=== PATIENT | male | born 1985 | race Caucasian/White ===

== ENCOUNTER 2016-12-26 19:01 | Emergency (ER) | payer MEDICAID ==
[2016-12-26 19:09] VITALS: BP 144/89
--- NOTE | 2016-12-26 19:21 | UC ---
Throat Pain/Nasal Lee HPI - HPI Summary HPI Summary: 31 male presents with complaints of coughing and sore throat that began a week ago, went away and just recently came back yesterday. Patient was unable to sleep due to the coughing. He denies fever/chills, nausea and vomiting. Denies headache, nasal congestion and sinus pressure. States the cough is dry and he thinks the sore throat is from coughing so much. Also complains of sore ribs from coughing. He has been taking robitussin with little relief. Has not tried anything else. Has been fatigued and sleeping a lot. Denies difficulty breathing , SOB and chest pain. No known sick contacts. Has not had flu shot this year. Admits to seasonal allergies, no other PMHx. - History of Current Complaint Chief Complaint: UCRespiratory Stated Complaint: SORE THROAT/COUGH Time Seen by Provider: 12/26/16 19:14 Hx Obtained From: Patient, Family/Front Desk Manager - father Onset/Duration: Sudden Onset, Lasting Weeks, Worse Since Severity: Mild Pain Intensity: 10 Pain Scale Used: 0-10 Numeric Cough: Nonproductive Associated Signs & Symptoms: Positive: Dysphagia - Allergies/Home Medications Allergies/Adverse Reactions: Allergies Allergy/AdvReac Type Severity Reaction Status Date / Time No Known Allergies Allergy Verified 12/26/16 19:09 Home Medications: Home Medications Acetaminophen TAB* [Tylenol TAB*] 650 mg PO Q4H PRN 12/26/16 [History Confirmed 12/26/16] [email or web address] LIQ* [Robitussin*] 10 ml PO Q4H PRN 12/26/16 [History Confirmed ] PMH/Surg Hx/FS Hx/Imm Hx Cardiovascular History Of: Denies: Hypertension Respiratory History Of: Denies: Asthma Psychological History Of: Denies: Anxiety - Surgical History Surgical History: Yes Surgery Procedure, Year, and Place: amputation right pointer finger - Family History Known Family History: Positive: None - Social History Alcohol Use: None Substance Use Type: None Smoking Status (MU): Never Smoked Tobacco - Immunization History Most Recent Influenza Vaccination: did not have Vaccination Up to Date: Yes Review of Systems Constitutional: Negative Skin: Negative Eyes: Negative ENT: Sore Throat Respiratory: Cough Cardiovascular: Negative Gastrointestinal: Negative Genitourinary: Negative Motor: Negative Musculoskeletal: Negative Neurological: Negative Psychological: Negative All Other Systems Reviewed And Are Negative: Yes Physical Exam Triage Information Reviewed: Yes Appearance: Well-Appearing, No Pain Distress, Ill-Appearing Vital Signs: Initial Vital Signs Temp 98.6 F 12/26/16 19:06 Pulse 90 12/26/16 19:06 Resp 16 12/26/16 19:06 BP 144/89 12/26/16 19:06 Pulse Ox 98 12/26/16 19:06 Vital Signs Reviewed: Yes Eyes: Positive: Conjunctiva Clear ENT: Positive: Normal ENT inspection, Hearing grossly normal, Pharyngeal erythema, TMs normal. Negative: Tonsillar swelling, Tonsillar exudate, Trismus , Muffled/hoarse voice Dental: Negative: Cervical Lymphadenopathy Neck: Positive: Supple, Nontender, No Lymphadenopathy Respiratory: Positive: Chest non-tender, Lungs clear, Normal breath sounds, No respiratory distress, No accessory muscle use. Negative: Decreased breath sounds, Rhonchi, Stridor, Wheezing Cardiovascular: Positive: RRR, No Murmur, Pulses Normal, Brisk Capillary Refill Abdomen Description: Positive: Nontender Bowel Sounds: Positive: Present Musculoskeletal Exam: Normal Neurological Exam: Normal Psychological Exam: Normal Skin Exam: Normal Re-Evaluation - Re-Evaluation First Eval Re-Evaluation Time: 19:55 Change: Improved - felt better after duoneb, lung sounds clear bilaterally Throat Pain/Nasal Course/Dx - Course Course Of Treatment: patient did not appear to have strep or flu. appears to be suffering from bronchitis, given duoneb while in office. will be sent home with symptomatic measures. tessalon pearls for coughing and mucinex for congestion. chloraseptic spray for sore throat. aware of worsening signs and symptoms. antitbiotics do not seem appropriate at this time due to PE findings, HPI and vital signs. will start with symptomatic treatment. - Differential Dx/Diagnosis Differential Diagnosis/HQI/PQRI: Influenza, Mononucleosis, Otitis Media, Pharyngitis, Sinusitis, Tonsillitis, URI, Other Provider Diagnoses: Acute bronchitis, pharyngitis Discharge - Discharge Plan Condition: Stable Disposition: HOME Patient Education Materials: Acute Bronchitis (ED) Additional Instructions: Take prescribed cough suppressant before bedtime to help with sleeping. You may also use during the day if needed. Recommend Mucinex over the counter to help break up chest congestion. Try using Chloraseptic spray over the counter to help with sore throat. Ibuprofen/tylenol as needed. If symptoms worsen such as fever, increased coughing, difficulty breathing or new symptoms develop please seek medical attention. Follow up with PCP. Recommend to follow up with PCP for elevated BP.
[2016-12-26] MEDS ORDERED: Albuterol/Ipratropium NEB.SOL* Albuterol 2.5 MG/Ipratropium 0.5 MG 3 ML INH ONE (19:33)
[2016-12-26] MEDS ORDERED: Benzonatate CAP* 100 MG PO ONE (19:50)
== END 2016-12-26 20:05 | disposition home or self-care (01) ==
LOC: UCCORT 19:01
DX: J20.9 Acute bronchitis, unspecified (principal); J02.9 Acute pharyngitis, unspecified; Z89.021 Acquired absence of right finger(s)
CPT/HCPCS: 99213; A9270-GY; G0463